=== PATIENT | male | born 1980 | race Caucasian/White ===

== ENCOUNTER 2017-08-14 03:02 | Emergency (ER) | payer OTHER ==
[2017-08-14 03:35] LABS: BASOPHILS 0.1 % (0-2); EOSINOPHILS 2.7 % (0-7); HEMATOCRIT 48.2 % (42.0-54.0); HEMOGLOBIN 16.6 g/dL (13.5-17.5); IMMATURE GRANULOCYTES 0.5 % (0-5); LYMPHOCYTES 14.7 % (15-50); MCH 29.1 pg (26.0-34.0); MCHC 34.4 g/dL (31.0-37.0); MCV 84.4 fL (80.0-100.0); MEAN PLATELET VOLUME 9.4 fL (7.4-10.4); MONOCYTES 8.2 % (2-11); NEUTROPHILS 73.8 % (40-80); PLATELET COUNT 355 10x3/uL (130-400); RBC 5.71 10x6/uL (4.20-6.10); RDW 13.2 % (11.5-14.5); WBC 18.7 10x3/uL (4.8-10.8)
[2017-08-14 03:50] LABS: ALBUMIN 3.7 g/dL (3.4-5.0); ALKALINE PHOSPHATASE 84 U/L (46-116); ALT (SGPT) 59 U/L (10-68); BILIRUBIN - TOTAL 0.25 mg/dL (0.2-1.3); CALC OSMOLALITY 269 mosm/kg (275-300); CALCIUM 9.3 mg/dL (8.5-10.1); CARBON DIOXIDE 25.3 mmol/L (21.0-32.0); CHLORIDE - SERUM 99 mmol/L (98-107); GLUCOSE 109 mg/dL (74-106); POTASSIUM - SERUM 4.2 mmol/L (3.5-5.1); PROTEIN - SERUM 7.6 g/dL (6.4-8.2); SODIUM 134 mmol/L (136-145); UREA NITROGEN 14 mg/dL (7-18); eGFR NON AFRICAN AMERICAN 88 mL/min (90-120)
[2017-08-14 04:02] LABS: CHOL - HDL RATIO 7.3 ratio (2.3-4.9); CHOLESTEROL, TOTAL 203 mg/dL (0-200); CREATINE KINASE 264 UL (21-232); HDL CHOLESTEROL 28 mg/dL (32-96); LDL CHOLESTEROL 125 mg/dL (0-100); LDL-HDL RATIO 4.5 ratio (1.5-3.5); TRIGLYCERIDE 251 mg/dL (30-200)
[2017-08-14 04:03] LABS: TROPONIN-I < 0.017 ng/mL (0.000-0.060)
== END 2017-08-14 06:46 | disposition home or self-care (01) ==
LOC: D.ER 03:02
PROVIDERS: Family Medicine
DX: R07.89 Other chest pain (principal); I10 Essential (primary) hypertension